=== PATIENT | female | born 1935 ===

== ENCOUNTER 2016-06-14 06:44 | Inpatient (IN) | payer MEDICARE, OTHER ==
--- NOTE | ~2016-06-14 | OP ---
Record Of Operation [facility] [address] [place]. [address] NAME: ASHLY CROSS : 31 STATUS : ADM IN PAT#: [id number] AGE: 80 ADM/REG DATE : 06/14/16 MR#: [id number] REPORT SERV DATE: 06/14/16 DICTATED BY: LORENA VITAL DATE: 06/14/16 REPORT STATUS : Draft TRANSCRIBED BY: MODL DATE: 06/14/16 DATE OF PROCEDURE: 06/14/2016 PREOPERATIVE DIAGNOSIS: Right hip arthritis. POSTOPERATIVE DIAGNOSIS: Right hip arthritis. PROCEDURE PERFORMED: Right total hip arthroplasty. SURGEON: Lorena Vital M.D. GRIEVANCE COORDINATOR: Jett Otoole. ANESTHESIA: Spinal with sedation and local infusion. PROCEDURE IN DETAIL: The patient is clearly identified and after obtaining informed consent is brought to the operating room at [facility] where here the patient is induced under general anesthesia and subsequently placed in the left lateral decubitus position. This concluded, the thigh and flank are prepped and draped in the usual manner. A time-out procedure successfully performed and after registering the knee and marking the anatomy through an approximately 4.5 incision, the skin is divided. The fascial planes are divided. The lateral fascia then is divided. Hemostasis is obtained with electrocautery and a Charnley retractor is applied. The piriformis is identified, tagged, divided, and retracted over the sciatic nerve felt deep in the wound. At which point, the mini approach to the hip is formed with dividing the capsule in a mini approach with a cuff of tissues remaining at the femoral side to accomplish repair at the conclusion of the case. Dislocating the hip, end-stage arthritic changes are noted. The tissue surrounding the femoral neck are protected with the Hohmann retractor and the femoral neck cut is made according to preoperative templating. This concluded, the femoral head is removed. The acetabulum is exposed. The labral and fluvial tissues are removed and reaming is performed. Subsequently trialing with the appropriate trial, the permanent acetabular components placed with the Cobb Sector. At which point, the acetabular trial component is then placed. The proximal femur is then addressed. The structures posteromedial to the greater trochanter are removed and this concluded the cookie-cutter canal finder lateralizer and reaming is performed. This concluded, broaching is performed and with excellent fit-fill and stability for the implant trialing is performed finding excellent leg length, stability, no impingement, good kickback, no push-pull, and the lesser trochanter palpably at the appropriate distance from the ischium when compared to preoperative templating. The trials were felt to be appropriate. These are all then removed and the permanent implants are then carefully applied uneventfully. Copious irrigation is then performed with same stability and findings noted after insertion. At which point, the joint then is carefully closed in layers including capsule, piriformis, lateral fascia, deep tissues, and skin. Aquacel dressing is applied and the patient is then allowed to awaken, is placed supine and is returned to the recovery room in stable condition having tolerated the procedure well. ESTIMATED BLOOD LOSS: 100 mL. Record Of Operation [address] [place]. [address] NAME: ASHLY CROSS : 31 STATUS : ADM IN [facility]#: [id number] AGE: 80 ADM/REG DATE : 06/14/16 MR#: [id number] REPORT SERV DATE: 06/14/16 DICTATED BY: LORENA VITAL DATE: 06/14/16 REPORT STATUS : Draft TRANSCRIBED BY: AYAZ DATE: 06/14/16 FLUIDS: 700 mL. TOURNIQUET TIME: None. PATHOLOGY: Sent specimen. MICROBIOLOGY: None. COMPLICATIONS: None. SPONGE AND NEEDLE COUNTS: Reportedly correct. ANTIBIOTICS: Administered appropriately preoperatively and ordered to be discontinued within 23 hours. IMPLANTS: DePuy hip system, femur 5 standard, +1.5/36 metal head; acetabulum, Cobb sector size 54 with a +4 neutral liner, and no screws. ANNEMARIE/AYAZ Lorena Vital M.D. / [id number] CC: Lorena Vital M.D.
[~2016-06-14 06:44] MED LIST: PRILO PO; SYN125 PO
[2016-06-15 04:59] LABS: HEMATOCRIT 33.7 % (36.0-48.0); HEMOGLOBIN 11.1 g/dL (12.0-16.0)
[2016-06-15 05:15] LABS: BUN (BLOOD UREA NITROGEN) 20 MG/DL (6-23); CHLORIDE, SERUM 108 MMOL/L (96-112); CO2 (CARBON DIOXIDE) 25 MMOL/L (24-34); CREATININE 0.93 MG/DL (0.55-1.02); GFR AFRICAN AMERICAN 66 ML/MIN (>=60); GFR NON AFRICAN AMERICAN 57 ML/MIN (>=60); GLUCOSE, SERUM 146 MG/DL (60-99); POTASSIUM, SERUM 4.1 MMOL/L (3.5-5.3); SODIUM, SERUM 140 MMOL/L (135-148)
[2016-06-15 05:23] LABS: INTERNATIONAL NORMAL RATI 1.1 UNITS (-); PROTIME (NOT ORD) 14.2 SEC (12.0-14.5)
[2016-06-16 04:43] LABS: HEMATOCRIT 33.7 % (36.0-48.0)
[2016-06-16 04:52] LABS: INTERNATIONAL NORMAL RATI 2.2 UNITS (-)
[2016-06-16 04:54] LABS: PROTIME (NOT ORD) 24.1 SEC (12.0-14.5)
[2016-06-16] MEDS ORDERED: OXYCOD PO (11:24)
[2016-06-16] MEDS ORDERED: ZOFRAN4 PO (11:24)
[2016-06-16] MEDS ORDERED: C2 (11:24)
== END 2016-06-16 16:56 | disposition home or self-care (01) | DRG 470 ==
LOC: SDC/OF 06:44 → PACU 10:28 → 3SO 11:48
PROVIDERS: Orthopaedic Surgery
PROC: 0SR902Z Replacement of Right Hip Joint with Metal on Polyethylene Synthetic Substitute, Open Approach (ICD-10-PCS; principal; 2016-06-14 07:45)
DX: M16.11 Unilateral primary osteoarthritis, right hip (principal); E03.9 Hypothyroidism, unspecified; K21.9 Gastro-esophageal reflux disease without esophagitis
CPT/HCPCS: 36415; 72170; 80048; 85014; 85018; 85610; 86850; 86900; 86901; 87641; 88304; 88311; 97110-GP; 97116-GP; 97161-GP; 97165-GO; A9270-GY; C1776; G8978-CK-GP; G8979-CJ-GP; G8987-CJ-GO; G8988-CJ-GO; G8989-CJ-GO; J0690; J1170; J1885; J2250; J2274; J2370; J2405; J2795; J3010; J3370